=== PATIENT | male | born 1955 | race Caucasian/White ===

== ENCOUNTER 2017-01-06 09:35 | Outpatient (CLI) | payer OTHER ==
--- NOTE | 2017-01-06 12:18 | DIAGNOSTIC IMAGING REPORT ---
PROCEDURE: XR FOREARM - RIGHT INDICATION: R KNEE PAIN, R FOREARM INJURY TECHNIQUE: AP and lateral views. COMPARISON: None. FINDINGS: Osseous structures are normal. IMPRESSION: 1. Normal right forearm.
--- NOTE | 2017-01-06 12:19 | DIAGNOSTIC IMAGING REPORT ---
PROCEDURE: XR KNEE 3 VIEWS - RIGHT INDICATION: R KNEE PAIN, R FOREARM INJURY TECHNIQUE: Three views. COMPARISON: None. FINDINGS: Osseous structures and joint spaces are normal. IMPRESSION: 1. Normal right knee.
== END 2017-01-06 23:00 | disposition home or self-care (01) ==
LOC: XR SRH 09:35
DX: S59.911A Unspecified injury of right forearm, initial encounter (principal); M25.561 Pain in right knee